=== PATIENT | male | born 1995 | race American Indian/Alaskan Native ===

== ENCOUNTER 2017-07-27 17:22 | Emergency (ER) | payer MEDICAID, OTHER ==
[2017-07-27 17:22] VITALS: BMI 19.9
[2017-07-27 17:35] VITALS: BP 123/76; PULSE 80; RESP 16; TEMP 98.3; O2SAT 98
--- NOTE | 2017-07-27 18:15 | ED PDOC ---
HPI: General Adult Time Seen by Provider: 07/27/17 17:38 Chief Complaint (Nursing): Back Pain Chief Complaint (Provider): Back Pain History Per: Patient History/Exam Limitations: no limitations Current Symptoms Are (Timing): Still Present Additional Complaint(s): 22 y/o male presents to the ED complaining of left upper back pain. Patient reports that pain is worse when he adducts his left arm. Pt abducted arm in ER and is unable to reproduce pain. Denies any further medical complaints. Past Medical History Reviewed: Historical Data, Nursing Documentation, Vital Signs Vital Signs: Last Vital Signs Temp 98.3 F 07/27/17 17:34 Pulse 80 07/27/17 17:34 Resp 16 07/27/17 17:34 BP 123/76 07/27/17 17:34 Pulse Ox 98 07/27/17 19:18 - Medical History PMH: No Chronic Diseases - Surgical History Surgical History: No Surg Hx - Family History Family History: States: Unknown Family Hx - Living Arrangements Living Arrangements: With Family - Social History Current smoker - smoking cessation education provided: No - Home Medications Home Medications: Ambulatory Orders Medication Instructions Recorded Ibuprofen [Motrin] 600 mg PO Q6H PRN #20 tab 01/27/16 - Allergies Allergies/Adverse Reactions: Allergies Allergy/AdvReac Type Severity Reaction Status Date / Time No Known Allergies Allergy Verified 01/27/16 07:59 Review of Systems ROS Statement: Except As Marked, All Systems Reviewed And Found Negative Musculoskeletal: Positive for: Back Pain (left upper back pain) Physical Exam - Reviewed Nursing Documentation Reviewed: Yes Vital Signs Reviewed: Yes - Physical Exam Appears: Positive for: Non-toxic, No Acute Distress Head Exam: Positive for: ATRAUMATIC, NORMAL INSPECTION, NORMOCEPHALIC Skin: Positive for: Normal Color, Warm, Dry Eye Exam: Positive for: Normal appearance Neck: Positive for: Normal Respiratory: Negative for: Accessory Muscle Use, Respiratory Distress Gastrointestinal/Abdominal: Positive for: Normal Exam Back: Positive for: Muscle Spasm (left side inferior scapula). Negative for: Vertebral Tenderness Extremity: Positive for: Normal ROM. Negative for: Deformity Neurologic/Psych: Positive for: Alert, Oriented - ECG O2 Sat by Pulse Oximetry: 98 (RA) Pulse Ox Interpretation: Normal Medical Decision Making Medical Decision Making: Time: 18:10 Plan: Chest x-ray Without acute cardiopulmonary abnormalities. Scribe Attestation: Documented by Dereck Parsons acting as a scribe for LILIANA Rodriguez. Scribbhupendra Attestation: All medical record entries made by the Scribe were at my direction and personally dictated by me. I have reviewed the chart and agree that the record accurately reflects my personal performance of the history, physical exam, medical decision making, and the department course for this patient. I have also personally directed, reviewed, and agree with the discharge instructions and disposition. Disposition - Clinical Impression Clinical Impression: Back pain - Disposition Referrals: FAMILY PROVIDER,NO [Primary Care Provider] - Disposition: Routine/Home Disposition Time: 18:20 Condition: STABLE Instructions: Upper Back Pain (DC) Forms: [employer] (Kyrgyz)
--- NOTE | 2017-07-28 07:56 | RAD ---
HISTORY: Left side upper back pain, 2 days - No similar COMPARISON: No prior. TECHNIQUE: Chest PA and lateral FINDINGS: LUNGS: No active pulmonary disease. PLEURA: No significant pleural effusion identified. No pneumothorax apparent. CARDIOVASCULAR: Normal. OSSEOUS STRUCTURES: No significant abnormalities. VISUALIZED UPPER ABDOMEN: Normal. OTHER FINDINGS: None. IMPRESSION: No acute cardiopulmonary disease appreciated.
== END 2017-07-27 20:24 | disposition home or self-care (01) ==
LOC: SUPCPDRO 17:22 → H.ER 17:22
DX: M54.9 Dorsalgia, unspecified (principal)